=== PATIENT | male | born 2000 | race Caucasian/White ===

== ENCOUNTER 2022-03-08 17:26 | Emergency (ER) | payer MEDICAID, SELFPAY ==
--- NOTE | ~2022-03-08 | XR_ITS ---
EXAMINATION: XR HAND, LEFT CLINICAL INFORMATION: Pain post injury COMPARISON: None TECHNIQUE: PA, lateral, and oblique views of the left hand. FINDINGS: The bones and soft tissues are normal. No fracture. Alignment is anatomic. Joint spaces are maintained. No erosions or soft tissue calcifications. XR/XR hand LT min 3V IMPRESSION: Normal left hand.
[2022-03-08 17:31] VITALS: BP 137/78; PULSE 93; RESP 16; TEMP 36.6; O2SAT 98; BMI 24.3
--- NOTE | 2022-03-08 19:07 | ED_ITS ---
HPI - Extremity Problem General Chief complaint: Extremity Injury, Upper Stated complaint: hand INJ/puncture Time Seen by Provider: 03/08/22 18:07 Source: patient Mode of arrival: ambulatory History of Present Illness HPI Narrative: 21-year-old male with no significant past medical history presenting to the ED complaining of left hand pain and swelling s/p punching car door 2 days ago. Reports had lacerations to area which he let close on their own, attempted to seek treatment at [facility] ED and urgent care after incident however due to wait times LWT'd. Tetanus up-to-date. Denies numbness, tingling, weakness, injury to the area MD Complaint: extremity pain, joint swelling and joint pain Onset (ago): day(s) Related Data Previous Rx's Medication Instructions Recorded cephalexin 500 mg capsule 500 mg PO QID 7 Days #28 cap 03/08/22 Allergies Allergy/AdvReac Type Severity Reaction Status Date / Time banana Allergy Anaphylaxis Verified 03/08/22 17:46 Review of Systems Review of Systems: Constitutional: No Fever, No Chills ENT/Mouth: No Ear Pain, No Nasal Congestion, No Sinus Pain, No Hoarseness, No sore throat, No Rhinorrhea, No Swallowing Difficulty Cardiovascular: No Chest Pain, No SOB Respiratory: No Cough, No Sputum Gastrointestinal: No Nausea, No Vomiting, No Diarrhea, No Constipation, No Abdominal pain Genitourinary:, No Dysuria, No Urinary Frequency, No Hematuria, No Urinary Incontinence, No Urgency, No Flank Pain Musculoskeletal: + joint pain, No Myalgias, + Joint Swelling Skin: + Skin Lesions, No rash Neuro: No Weakness, No Numbness, No Paresthesias Yes all other systems are reviewed and are negative Neurologic: Denies Sensory deficit (Neuro) [facility] Past Medical History Attestation statement: The following information was validated with the patient. Medical History No known health problems Social History Social History Advance Directives: No Advance Directives Information Provided: No Physical Exam Vital Signs: Vital Signs: Last Vital Signs Temp 97.8 F 03/08/22 17:31 Pulse 93 03/08/22 17:31 Resp 16 03/08/22 17:31 BP 137/78 04/16/22 17:31 Pulse Ox 98 03/08/22 17:31 BMI result Body Mass Index 24.3 Const: General: cooperative, healthy appearing and no acute distress Orientation/consciousness: patient oriented x3 Limitations: no limitations HEENT: Head: Yes normal to inspection and Yes atraumatic Ears: hearing grossly normal bilaterally General nose exam: Normal external nose present Face and sinus: Yes normal facial exam Eyes: General: appearance normal, both eyes and all related structures EOM: EOMs intact bilaterally Neck: Neck: Yes normal visual inspection and Yes no meningeal signs Resp: Effort & Inspection: normal respiratory effort and no respiratory distress Cardio: Rate: regular rate Heart sounds: S1 normal heart sound present and S2 normal heart sound present Peripheral pulses: radial pulses present and ulnar radial pulses present Skin: Other: +healing closed laceration to medial aspect left 5th MCP. Mild surrounding erythema. No warmth. Rashes: no rashes Neuro: Other: Sensation intact to light touch throughout General: patient oriented x3, tone normal and no meningeal signs Gait exam (Neuro): Normal gait present Se nsory Exam: No Sensory deficit (Neuro) Extrem: Other: + swelling noted to left hand greater at 4/5 digits with tenderness to the 5th digit. Slight decreased pinky to thumb opposition secondary to pain/swelling. Patient with difficulty to radial deviate the 5th digit. NV intact Course Course Course Narrative: XR hand LT min 3V IMPRESSION: Normal left hand. >> patient placed in long finger splint velvet tapped to 4th digit with overlying Miguel wrap in slight flexion, discussed importance of close orthopedic hand follow up, he verbalized understanding MDM - Extremity (Nontraumatic) MDM Narrative Medical decision making narrative: 21-year-old male with no significant past medical history presenting to the ED complaining of left hand pain and swelling s/p punching car door 2 days ago. On exam vital signs stable. Concern for fracture vs early cellulitis vs ulnar nerve injury vs tendon injury. Laceration closed/2 days old, no need for repair at this time Plan: X-rays Medical Records Attestation: I reviewed the patient's medical records. Lab Data Attestation: I reviewed the patient's lab results. Discharge Plan Discharge Clinical Impression: Hand injury, Cellulitis, Laceration of hand, left Patient Disposition: Home, Self-Care Instructions: Finger Sprain (ED) Additional Instructions: Your x-ray does not show a fracture however there is concern you may have injured your nerve or tendon. Please wear splint until you see the specialist, call Thursday or Thursday when office is open to make an appointment Ice and elevate Take Tylenol /Motrin for pain/swelling Keflex as an antibiotic, take as prescribed for possible early infection to your cut If area begins to look more infected, fever, pain becomes unbearable pain return to the ED Prescriptions: New cephalexin 500 mg capsule 500 mg PO QID 7 Days Qty: 28 0RF Referrals: Daniela Carvajal MD [Physician] - 2 days (You may have injured her nerve or tendon, call Thursday/Thursday to make an appointment in the next few days)
== END 2022-03-08 19:36 | disposition home or self-care (01) ==
PROVIDERS: Emergency Provider Emergency Medicine Emergency Medical Services
DX: L03.114 Cellulitis of left upper limb (principal); S61.412A Laceration without foreign body of left hand, initial encounter; W22.09XA Striking against other stationary object, initial encounter; Y93.9 Activity, unspecified; Y92.9 Unspecified place or not applicable; Y99.9 Unspecified external cause status
CPT/HCPCS: 73130; 99283